=== PATIENT | female | born 1960 | race Caucasian/White ===

== ENCOUNTER → 2017-03-03 | Day surgery (SDC) | payer OTHER ==
[~2017-03-03] VITALS: Ht 162.6 cm; Wt 96.0 kg
[~2017-03-03] MED LIST: ADAL40PE SQ; ALBU8.5H2 INHALATION; ASCO500C6 PO; ASPI-628 PO; ATOR40TA69 PO; BUDE90AE IH; CALC0.253 PO; CARV6.252 PO; CHOL200047 PO; Darbepoetin Alfa (ESRD) 60 mCg/0.3 mL Inj SUBQ ONE; Darbepoetin Alfa 60 mCg/0.3 mL Inj SUBQ ONE; FEBU80TA PO; FERR-83 PO; FRSM80T PO; GABA-502 PO; HYDR-4003 PO; INSU100I28 SQ; INSU200I SQ; KRIL1CAP21 PO; LEFL20TA18 PO; LEVA15HF5 IH; MELA3TAB35 PO; MONT10TA23 PO; OMEP-113 PO; ONDA4TAB12 PO; POTA10TA12 PO; PRAV40TA PO; PRE10 PO; SPRN50T PO; TRAM100C3 PO; novolog insulin pump SUBQ
[2017-03-03 16:46] VITALS: BP 144/83; PULSE 90; RESP 16; O2SAT 96
--- NOTE | 2017-03-03 17:04 | NUR ---
Za Patient arrived to the unit independently. Reviewed carenotes and package insert for Aranesp with patient. Verbalized an understanding. Injection given in left upper arm. Left in stable condition.
== END | disposition home or self-care (01) ==
LOC: MOCO 16:50
PROVIDERS: ATTEND Student in an Organized Health Care Education/Training Program
DX: E10.21 Type 1 diabetes mellitus with diabetic nephropathy (principal); E10.22 Type 1 diabetes mellitus with diabetic chronic kidney disease; I12.9 Hypertensive chronic kidney disease with stage 1 through stage 4 chronic kidney disease, or unspecified chronic kidney disease; N18.4 Chronic kidney disease, stage 4 (severe); D63.1 Anemia in chronic kidney disease
CPT/HCPCS: 96372; J0881